=== PATIENT | female | born 1995 | race Caucasian/White ===

== ENCOUNTER 2017-01-18 10:15 | Emergency (ER) | payer BC ==
--- NOTE | 2017-01-18 11:34 | ED ---
GI/ HPI - HPI Summary HPI Summary: 21F [facility] and told that her bladder was not emptying all the way. She denies any dysuria but admits to frequency. She has an appointment with urology in a couple weeks. She denies any flank pain, fever, or hematuria. She also states she has been having blood occasionally in her stool. She states that it is streaks of blood. She denies any dark tarry stools. She denies any lightheadedness or dizziness. - History of Current Complaint Chief Complaint: EDUrogenitalProblems Time Seen by Provider: 01/18/17 10:36 Stated Complaint: UNABLE TO EMPTY BLADDER Pain Intensity: 2 - Allergy/Home Medications Allergies/Adverse Reactions: Allergies Allergy/AdvReac Type Severity Reaction Status Date / Time Desoximetasone Allergy Hives Verified 01/18/17 10:22 [From Topicort] PMH/Surg Hx/FS Hx/Imm Hx Endocrine/Hematology History: Denies: Hx Anticoagulant Therapy Cardiovascular History: Denies: Hx Hypertension Infectious Disease History: No Infectious Disease History: Denies: Traveled Outside the [place] in Last 30 Days - Family History Known Family History: Positive: Hypertension - Social History Alcohol Use: Rare Substance Use Type: Reports: None Smoking Status (MU): Never Smoked Tobacco Review of Systems Negative: Fever Negative: Chest Pain Negative: Shortness Of Breath Positive: frequency, urgency. Negative: dysuria, flank pain, hematuria All Other Systems Reviewed And Are Negative: Yes Physical Exam Triage Information Reviewed: Yes Vital Signs On Initial Exam: Initial Vitals Temp Pulse Resp BP Pulse Ox 98.1 F 63 18 145/75 100 01/18/17 10:18 01/18/17 10:18 01/18/17 10:18 01/18/17 10:18 01/18/17 10:18 Vital Signs Reviewed: Yes Appearance: Positive: Well-Appearing Skin: Positive: Warm, Dry Head/Face: Positive: Normal Head/Face Inspection Eyes: Positive: Normal, Conjunctiva Clear Respiratory/Lung Sounds: Positive: Clear to Auscultation, Breath Sounds Present Cardiovascular: Positive: Normal, RRR Abdomen Description: Positive: Nontender, Soft, Other: - normal rectal tone, no hemorrhiods, no gross blood seen Bowel Sounds: Positive: Present Diagnostics - Vital Signs Vital Signs Temp Pulse Resp BP Pulse Ox 01/18/17 10:45 98.1 F 63 18 145/75 100 01/18/17 10:18 98.1 F 63 18 145/75 100 - Laboratory Lab Statement: Any lab studies that have been ordered have been reviewed, and results considered in the medical decision making process. - Ultrasound No standard instances Ultrasound Interpretation: No Acute Changes - normal, 20ml left which is normal. Ultrasound Interpretation Completed By: Radiologist DEONTE Course/Dx - Course Course Of Treatment: 21F presents with frequency and urgency for 2 weeks. [facility] and saw that did not empty bladder completely. denies any dysuria. abdomen soft nontender. u/a and u/s normal. also complain of rectal bleed with streaking. normal rectal exam. explained like hemorrhoid and follow up with primary and urology. patient understands and agrees with plan - Diagnoses Differential Diagnoses - Female: Renal Colic, Urinary Tract Infection, Ureteral Calculi Provider Diagnoses: Urinary urgency Discharge - Discharge Plan Condition: Good Disposition: HOME Forms: *School Release Referrals: No Primary Care Phys,NOPCP [Primary Care Provider] - Additional Instructions: Follow up with urology as scheduled Follow up with obgyn Take ibuprofen for pain as needed every 6 hours Return to ED if develop any new or worsening symptoms
[2017-01-18 12:16] LABS: Urine Bilirubin Negative (Negative); Urine Glucose Negative (Negative); Urine Nitrite Negative (Negative)
--- NOTE | 2017-01-18 13:37 | RAD ---
INDICATION: Urinary retention. COMPARISON: There are no prior studies available for comparison. TECHNIQUE: Multiple real-time images of the urinary bladder were obtained. FINDINGS: The bladder is normal in contour. No intraluminal abnormalities are seen. No bladder wall thickening is noted. There are bilateral ureteral jets present within the urinary bladder. The prevoid volume was 327 and a post void residual was 20 ml. IMPRESSION: NEGATIVE EXAM.
[2017-01-18 14:58] VITALS: BP 110/56
== END 2017-01-18 13:50 | disposition home or self-care (01) ==
LOC: ED 10:15 → EDBD 10:15 → ED 13:50
DX: R39.15 Urgency of urination (principal); R35.0 Frequency of micturition
CPT/HCPCS: 76857; 81003; 99282